=== PATIENT | male | born 1960 | race Caucasian/White ===

== ENCOUNTER 2025-10-14 13:36 | Outpatient (AMB) | payer OTHER, SELFPAY ==
--- NOTE | 2025-10-14 13:40 | A.PHYSOV_ITS ---
Intake Visit Reasons: NPV SELF REF-NECK PAIN (IMAGING @ [facility]) Intake Note: Patient is a 64 year old male in office today as a new patient for neck pain Jailer/Training Officer Required: No Jailer/Training Officer Name: Allergies No Known Allergies Allergy (Verified 10/11/25 14:11) HPI Comments Details: History of Present Illness The patient is a 64-year-old male presenting with neck pain. The neck pain began in December of the current year, initially presenting as occasional discomfort lasting one or two days before subsiding. In April, the patient experienced a severe episode lasting three days, during which he was unable to drive due to restricted neck movement. The pain persisted at a lower intensity until mid-July, when it intensified again, prompting a visit to [facility] and subsequent cervical spine x-rays. The x-rays revealed degenerative changes most pronounced at the C5 through C7 levels, consistent with cervical spondylosis. The patient was informed of arthritis in the cervical spine. The patient has been managing the pain with naproxen, Voltaren gel, and topical analgesics which provide temporary relief. He also uses a heating pad and takes hot showers to alleviate symptoms. The patient has been taking turmeric supplements since July, which he believes have been beneficial. 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 He reports no radiation of pain to the arms and denies headaches. Pain usually comes and goes. Pain comes and goes. He denies any radicular pain. Pain Description - Onset: Began in December, with occasional pain initially. - Quality: Described as severe during episodes, with inability to turn the head. - Location: Primarily in the neck, no radiation to arms. - Exacerbating factors: Physical activity, such as working as a city council member. - Relieving factors: Naproxen, Voltaren gel, RockSauce, heating pad, hot showers, and turmeric supplements. Results - Imaging: Cervical spine x-rays on July 23, 2025, showed degenerative changes at C5-C7 levels. [facility] Surgical History (Updated 10/14/25 @ 13:48 by Chanel Johns MA) History of hernia repair (Unknown) History of tonsillectomy (Unknown) H/O knee surgery (Unknown) Social History (Updated 10/14/25 @ 13:49 by Chanel Johns MA) Household Members: Spouse Alcohol intake: current Alcohol intake frequency: 3 or more drinks per day Patient Tobacco Use Status: Never used Tobacco Use of substances other than those prescribed or required for medical reasons: No Current occupational status: employed Current occupation: self employed Review of Systems Narrative Review of Systems - Musculoskeletal: Reports neck pain, denies radiation to arms. - Neurological: Denies headaches. Denies change in bowel bladder habits, denies fever or chills, denies uncontrolled depression or suicidal ideation Physical Exam Exam Exam: Physical Exam Patient appears to be in no acute distress, appropriately conversant and oriented. He was able to ambulate without antalgia. He was able to perform heel walk and toe walk. Spurling maneuver was negative. Lhermitte's sign was negative. Neurological examination of upper and lower extremities was nonfocal. Patient demonstrated no upper motor neuron signs. Assessment & Plan Assessment & Plan (1) Neck pain: Code(s): M54.2 - Cervicalgia Category: Medical (2) Cervicocranial syndrome: Code(s): M53.0 - Cervicocranial syndrome Category: Medical Plan Pain Management - Affect: Pain impacts ability to perform work-related activities, but patient continues to work. - Analgesia: Uses naproxen, Voltaren gel, topical analgesics, and turmeric supplements for pain relief. - Adverse Effects: No adverse effects from current pain management reported. - Activities of Daily Living: Pain affects ability to drive during severe episodes. - Aberrant Drug Related Behaviors: No aberrant behaviors reported. Plan Patient was informed and verbally consented to the use of an ambient scribe for clinic note documentation during this visit. 1. Cervical Spondylosis The patient will continue with current conservative management, including the use of naproxen, Voltaren gel, and turmeric supplements for pain relief. A prescription for prednisone 50 mg was provided for severe pain episodes, to be taken for up to five days as needed. The patient is advised to avoid taking NSAIDs concurrently with prednisone. The patient is encouraged to continue using heat therapy and to maintain physical activity as tolerated. 2. Arthritis The patient is advised to continue with the current regimen of naproxen, Voltaren gel, and turmeric supplements. Heat therapy and physical activity adjustments are recommended to manage symptoms. The patient is informed that the use of prednisone is reserved for severe episodes and should not be used concurrently with NSAIDs. Discussion Notes During the consultation, I discussed with the patient the diagnosis of cervical spondylosis and arthritis, emphasizing the importance of conservative management strategies such as the use of naproxen, Voltaren gel, and turmeric supplements. I explained the role of prednisone for severe pain episodes and advised against concurrent use with NSAIDs. We also discussed the benefits of heat therapy and maintaining physical activity as tolerated. The patient was informed about the option of follow-up if symptoms worsen or do not improve with current management. Patient Instructions - Continue using naproxen, Voltaren gel, and turmeric supplements as directed. - Use heat therapy, such as heating pads and hot showers, to relieve pain. - Take prednisone only for severe pain episodes, and do not use with NSAIDs. - Maintain physical activity as tolerated, adjusting workload as needed. - Follow up if symptoms worsen or do not improve. Medications: New prednisone 50 mg PO DAILY 5 tabs 3RF neck pain M53.0 - Cervicocranial syndrome, M54.2 - Cervicalgia Coding Level of Care Code New Pt Level 4 (04207) Diagnoses Neck pain M54.2 Cervicocranial syndrome M53.0
--- OUTSIDE RECORDS SUMMARY | 2025-10-14 16:56 | XMS_ITS | Clinical Summary ---
Author Organization [facility] Address [address] [place] [address] [place] [id number] Phone Care Team Providers Care Customer Marketing Assistant Name Role Phone Justin Kimball MD Primary Care Provider Allergies No known active allergies Medications No known medications Social History Tobacco Use Types Packs/Day Years Used Date Smoking Tobacco: Never Smokeless Tobacco: Never Education Answer Date Recorded Are you interested in more education? Not on lorna e 03/29/2023 Are you concerned about learning? Not on file 03/29/2023 No 03/29/2023 No 03/29/2023 Digital Access Answer Date Recorded No 04/27/2023 No 04/27/2023 No 04/27/2023 Reliable internet access at home? Not on file 04/27/2023 Device with a working camera? Not on file Sex and Gender Information Value Date Recorded Sex Assigned at Not on file Legal Sex Male 10:30 AM EDT Gender Identity Not on file Sexual Orientation Not on file Last Filed Vital Signs Vital Sign Reading Time Taken Comments Blood Pressure 148/90 06/03/2020 10:45 AM EDT Pulse 63 06/03/2020 10:45 AM EDT Temperature 37 C (98.6 F) 06/03/2020 10:45 AM EDT Respiratory Rate 18 06/03/2020 10:45 AM EDT Oxygen Saturation 98% 06/03/2020 10:45 AM EDT Inhaled Oxygen Concentration - - Weight 104.3 kg (230 lb) 06/03/2020 10:45 AM EDT Height 182.9 cm (6') 06/03/2020 10:45 AM EDT Body Mass Index 31.19 06/03/2020 10:45 AM EDT Plan of Treatment Health Maintenance Due Date Last Done Comments LIPID PANEL 1959 DEPRESSION SCREENING 1971 HEPATITIS C SCREENING 1977 HIV ONE-TIME SCREENING (18-6 5 YEARS) 1977 COLOGUARD 2004 COLONOSCOPY 2004 COLORECTAL CANCER SCREENING 2004 FIT TEST 2004 FOBT 2004 SIGMOIDOSCOPY 2004 VIRTUAL COLONOSCOPY 2004 PNEUMOCOCCAL VACCINES (50+ years) (1 of 1 - PCV) 2009 ZOSTER VACCINES (1 of 2) 2009 INFLUENZA VACCINE (#1) 2025 COVID-19 VACCINE (3 - 2024-2 6 season) 2025 03/21/2021, 02/28/2021 Adult Td,Tdap Booster 12/23/2028 12/23/2018 RSV VACCINE (1 - 1-dose 75+ series) 2034 SMOKING STATUS SCREENING (On ce After 26 Yrs) Completed 06/03/2020 HEPATITIS A VACCINES Aged Out No long er eligible based on patient's age to complete this topic HIB VACCINES Aged Out No longer eligi ble based on patient's age to complete this topic IPV VACCINES Aged Out No longer eligi ble based on patient's age to complete this topic MENINGOCOCCAL VACCINES (ACWY) Aged Out No longer eligible based on patient's age to complete this topic MENINGOCOCCAL VACCINES (B) Aged Out N o longer eligible based on patient's age to complete this topic Medical Devices Not on file Insurance UNITED PPO UNITED PPO UNITED PPO UNITED PPO UNITED PPO UNITED PPO UNITED PPO UNITED PPO Care Teams Customer Marketing Assistant Relationship Specialty Start Date End Date Justin Kimball MD PCP - General Internal Medicine 06/03/20 Additional Source Comments The information contained in this document represents components of the legal health record. It is not the complete legal health record.[facility]
--- OUTSIDE RECORDS SUMMARY | 2025-10-14 16:56 | XMS_ITS | Clinical Summary ---
Author Organization [address] [facility] Address [address] [place] [address] Phone Care Team Providers Care Recreation Facilities Supervisor Name Role Phone Unavailable Primary Care Provider Unavailabl e Allergies No known active allergies Medications oxyCODONE-acetamin ophen (PERCOCET) 5-325 mg per tablet 01/22/2019 Active Active Problems Problem Noted Date Diagnosed Date Subcutaneous mass of right thumb 03/23/2025 Varicocele 12/23/2018 Overview (12/18/2024): L>R Encounters Date Type Department Care Team Description 09/21/2025 Telephone Orthopedic Surgery - [place] [address] [address] Brenna Zaragoza MD from Last 3 Months Immunizations Immunization Administration Dates Next Due Influenza trivalent, with pr eservative (Fluzone; Afluria) 6mo and older 11/20/2021 Pfizer SARS-CoV-2 COVID-19, mRNA, LNP-S, preservative free 11/20/2021 Tdap Tetanus diptheria acell ular pertussis (Boostrix; Adacel) 7yo and older 12/23/2018 Surgical History Surgery Date Site/Laterality Comments KNEE ARTHROSCOPY 2003 Left PROCEDURE: [place] ARTHROSCOPY AID [place] SPINE&/FX KNEE W/O FIXJ; [facility] 1969 PROCEDURE: HISTORICAL TONSILLECTOMY HERNIA REPAIR 01/22/2019 Bilateral PROCEDURE: LAPAROSCOPY, INGUINAL HERNIA REPAIR HERNIA REPAIR 01/22/2019 PROCEDURE: REPAIR UMBILICAL HERNIA; COMMENT: open without mesh Family History Medical History Relation Name Comments Other cancer Brother skin Heart attack Father dad had a pacem juan, unknown why Hypertension Father Colon cancer Mother Relation Name Status Comments Brother Father Mother Social History Tobacco Use Types Packs/Day Years Used Date Smoking Tobacco: Never Smokeless Tobacco: Never Alcohol Use Standard Drinks/Week Comments Yes 0 (1 standard drink = 0.6 oz pur e alcohol) Sex and Gender Information Value Date Recorded Sex Assigned at Not on file Legal Sex Male 5:49 PM EST Gender Identity Not on file Sexual Orientation Not on file Obstetrics History Last Filed Vital Signs Vital Sign Reading Time Taken Comments Blood Pressure - - Pulse - - Temperature - - Respiratory Rate - - Oxygen Saturation - - Inhaled Oxygen Concentration - - Weight 104 kg (230 lb) 03/23/2025 11:58 AM EDT Height 182.9 cm (6') 03/23/2025 11:58 AM EDT Body Mass Index 31.19 03/23/2025 11:58 AM EDT Plan of Treatment Upcoming Encounters Date Type Department Care Team (Late st Contact Info) Description 11/16/2025 10:30 AM EST Office Visit Orthopedic Surgery - [place] [address] [facility] [address] [place] [address] Verónica Argueta PA [address] [facility] [address] [place] [address] Health Maintenance Due Date Last Done Comments Pneumococcal Vaccine: 50+ Years (1 of 1 - PCV) 2009 Zoster Vaccines (1 of 2) 2009 Depression Screening 12/02/2024 Cholesterol Screening (Lipid Panel) 12/19/2024 11/21/2018 Social Influencers of Health Screening 12/19/2024 Falls Risk Assessment 2024 COVID-19 Vaccine (4 - 2024-2 6 season) 2025 11/20/2021, 03/21/2021, 02/28/2021 Influenza Vaccine (#1) 2025 11/20/2021 DTaP,Tdap,and Td Vaccines (2 - Td or Tdap) 12/23/2028 12/23/2018 Colorectal Cancer Screening: Colonoscopy 03/16/2029 03/16/2019 RSV Immunization Adult Patients (1 - 1-dose 75+ series) 2034 Hepatitis C Screening Completed 12/23/2018 HIB Vaccines Aged Out No longer eligi ble based on patient's age to complete this topic HPV Vaccines Aged Out No longer eligi ble based on patient's age to complete this topic Hepatitis A Vaccines Aged Out No long er eligible based on patient's age to complete this topic Hepatitis B Vaccines Aged Out No long er eligible based on patient's age to complete this topic IPV Vaccines Aged Out No longer eligi ble based on patient's age to complete this topic MMR Vaccines Aged Out No longer eligi ble based on patient's age to complete this topic Meningococcal ACWY Vaccine Aged Out N o longer eligible based on patient's age to complete this topic Meningococcal B Vaccine Aged Out No l onger eligible based on patient's age to complete this topic RSV Immunization Patients Under 20 months Aged Out No longer eligible b ased on patient's age to complete this topic Varicella Vaccines Aged Out No longer eligible based on patient's age to complete this topic Procedures Procedure Name Priority Date/Time Associated Diagnosis Comments COLONOSCOPY Routine 03/16/2019 HEPATITIS C SCREENING Routine 12/23/2018 LIPID PANEL Routine 11/21/2018 from Last 3 Months or Most Recently Relevant to Health Maintenance Results * Colonoscopy (03/16/2019) [facility] Colonoscopy no interpretation , abstracted Anatomical Region Laterality Modality Other us Historical Provider HEALTH MAINTENANCE Final Result * Hepatitis C Screening (12/23/2018) [facility] Hepatitis C Screening abstracted us Historical Provider HEALTH MAINTENANCE Final Result * (ABNORMAL) Lipid panel (11/21/2018) [facility] LDL/HDL Ratio 2 0 - 4 Triglycerides 66 0 - 150 mg/dL Cholesterol 220(A) 0 - 200 mg/dL HDL 94 >=40 mg/dL LDL Cholesterol 113(A) 0 - 100 mg/dL Blood Venous blood specimen / Unknown Historical Provider LAB BLOOD ORDERABLES Rani l Result from Last 3 Months or Most Recently Relevant to Health Maintenance Insurance [facility] [place]RS[place]ULA GUTIERREZ [id number]
== END 2025-10-14 14:11 | disposition home or self-care (01) ==
LOC: HO.HPHYS 13:37
PROVIDERS: Visit Provider Physical Medicine & Rehabilitation
DX: M54.2 Cervicalgia (principal); M53.0 Cervicocranial syndrome
CPT/HCPCS: 99204